=== PATIENT | male | born 1990 | race African-American/Black ===

== ENCOUNTER 2025-04-03 08:14 | Emergency (ER) | payer SELFPAY ==
[2025-04-03] MEDS ORDERED: Benzonatate 100 MG CAP ONE (09:26)
[2025-04-03] MEDS ORDERED: Ibuprofen 800 MG TAB ONE (09:26)
== END 2025-04-03 09:32 | disposition home or self-care (01) ==
LOC: NAV ERS 08:14
DX: J06.9 Acute upper respiratory infection, unspecified (principal)
CPT/HCPCS: 71045; 87426